=== PATIENT | male | born 1990 | race African-American/Black ===

== ENCOUNTER 2017-01-27 02:11 | Emergency (ER) | payer OTHER ==
[2017-01-27 03:04] VITALS: BP 137/79; PULSE 77; TEMP 98.4; BMI 27.8
--- NOTE | 2017-01-27 05:26 | PDOC ---
History of Present Illness - General Chief Complaint: Pain Stated Complaint: PAIN,RT SIDE Time Seen by Provider: 01/27/17 03:21 History Source: Patient Exam Limitations: No Limitations - History of Present Illness Initial Comments: 01/27/17 05:21 26yo Male patient presents to ED c/o atraumatic right rib pain onset "couple days ago." Patient reports symptoms began abruptly and had gotten worse with trouble breathing while playing basketball. Denies any other complaints at this time. Past History - Travel Traveled outside of the country in the last 30 days: No Close contact w/someone who was outside of country & ill: No - Past Medical History Allergies/Adverse Reactions: Allergies Allergy/AdvReac Type Severity Reaction Status Date / Time No Known Allergies Allergy Verified 01/27/17 02:58 Home Medications: Ambulatory Orders Ibuprofen [Motrin -] 600 mg PO Q6H PRN #30 tablet 01/27/17 Methocarbamol [Robaxin -] 500 mg PO TID PRN #21 tablet 01/27/17 NK [No Known Home Medication] 01/27/17 - Immunization History Immunization Up to Date: Yes - Psycho/Social/Smoking Cessation Hx Anxiety: No Suicidal Ideation: No Smoking Status: Yes Smoking History: Current every day smoker Years of Tobacco Use: 0 (no tobacco use, daily marijuana use .) Have you smoked in the past 12 months: Yes Number of Cigarettes Smoked Daily: 2 Information on smoking cessation initiated: No Hx Alcohol Use: No Drug/Substance Use Hx: Yes (marijuana daily) Review of Systems - Review of Systems Able to Perform ROS?: Yes Is the patient limited [place]i proficient: No Constitutional: No: Chills, Fever Respiratory: No: Cough, Shortness of Breath, Stridor, Wheezing Cardiac (ROS): No: Chest Pain, Edema, Palpitations ABD/GI: No: Diarrhea, Nausea, Vomiting : No: Symptoms Reported, Dysuria, Flank Pain, Hematuria Musculoskeletal: Yes: Other (RIGHT RIB PAIN). No: Back Pain Integumentary: No: Bruising, Dryness, Erythema Neurological: No: Headache, Seizure, Tingling, Dizziness All Other Systems: Reviewed and Negative *Physical Exam - Vital Signs Last Vital Signs Temp Pulse Resp BP Pulse Ox 98.4 F 77 18 137/79 98 01/27/17 02:53 01/27/17 02:53 01/27/17 02:53 01/27/17 02:53 01/27/17 02:53 - Physical Exam General Appearance: Yes: Nourished, Appropriately Dressed. No: Apparent Distress, Mild Distress, Moderate Distress, Severe Distress Neck: positive: Trachea midline, Supple. negative: Stridor, Lymphadenopathy (R) , Lymphadenopathy (L) Respiratory/Chest: positive: Lungs Clear, Normal Breath Sounds. negative: Respiratory Distress, Accessory Muscle Use, Labored Respiration, Rapid RR Cardiovascular: positive: Regular Rhythm, Regular Rate Gastrointestinal/Abdominal: positive: Normal Bowel Sounds, Soft. negative: Distended, Guarding, Rebound, Tenderness Musculoskeletal: positive: Normal Inspection, Other (RIGHT RIB TENDERNESS ON EXAMINATION. NO CREPITUS PALPATED). negative: CVA Tenderness Extremity: positive: Normal Capillary Refill, Normal Inspection, Normal Range of Motion Integumentary: positive: Normal Color, Dry, Warm Neurologic: positive: vp global II-XII NML intact, Fully Oriented, Alert, Normal Mood/ Affect, Normal Response, Motor Strength 02/09 ED Treatment Course - RADIOLOGY Radiology Studies Ordered: Category Date Time Status CHEST PA & LAT [RAD] Stat Radiology 01/27/17 04:31 Ordered RIBS RIGHT SIDE [RAD] Stat Radiology 01/27/17 04:31 Ordered *DC/Admit/Observation/Transfer Diagnosis at time of Disposition: Costochondritis - Discharge Dispostion Disposition: HOME Condition at time of disposition: Stable Admit: No - Prescriptions Prescriptions: Ibuprofen [Motrin -] 600 mg PO Q6H PRN #30 tablet PRN Reason: Mild Pain Methocarbamol [Robaxin -] 500 mg PO TID PRN #21 tablet PRN Reason: RIB PAIN - Referrals Referrals: Elisabeth Littlejohn [Primary Care Provider] - - Patient Instructions Printed Discharge Instructions: DI for Costochondritis Additional Instructions: FOLLOW UP WITH DR. LITTLEJOHN. CALL TO SCHEDULE APPOINTMENT. TAKE MEDICATIONS PRESCRIBED. RETURN IF SYMPTOMS WORSEN OR ANY CONCERNS FOR FURTHER EVALUATION. APPLY COLD COMPRESS EVERY 4 HOURS ON AND OFF FOR 15-20 MIN X 1 DAY, THEN WARM COMPRESS NEEDED. TRY ICY HOT PATCHES TO AFFECTED AREA. Print Language: L[place]BOURGISH - Post Discharge Activity Work/School Note: Back to Work
== END 2017-01-27 06:32 | disposition home or self-care (01) ==
LOC: JER 02:11
DX: M94.0 Chondrocostal junction syndrome [Tietze] (principal); F17.210 Nicotine dependence, cigarettes, uncomplicated
CPT/HCPCS: 71020-TC; 71101-TC-RT; 99282-25

== ENCOUNTER 2017-02-02 07:44 | Emergency (ER) | payer OTHER ==
[2017-02-02 08:00] VITALS: PULSE 82; TEMP 98.1; BMI 27.1
--- NOTE | 2017-02-02 08:15 | PDOC ---
History of Present Illness - General History Source: Patient Exam Limitations: No Limitations - History of Present Illness Initial Comments: 02/02/17 08:27 The patient is a 26 year old male with no significant past medical history who presents to the ED with complaints of right sided rib pain for a week. The patient was recently seen in the ED on 01/27/17 for a bruised rib and was discharged with Robaxin and ibuprofen. The patient reports he stopped taking Robaxin after 2-3 days secondary to nausea. He states his right sided rib pain hasnt progressively worsened but notes the pain woke him up from his sleep this morning. Patient states he woke up on his back this morning and hasnt felt pain like that since he was last seen in the ED. Patient reports coughing, sneezing, exertion and certain movements worsen his right sided rib pain. Denies fevers or chills. Denies cough, wheezing. Denies chest pain or shortness of breath. Denies focal numbness, weakness or tingling. Denies any other symptoms. <Sandra Carrera - Last Filed: 02/02/17 08:27> <Amos Simon - Last Filed: 02/02/17 09:40> - General Chief Complaint: Pain Stated Complaint: PAIN Time Seen by Provider: 02/02/17 08:14 Past History <Sandra Carrera - Last Filed: 02/02/17 08:27> - Immunization History Immunization Up to Date: Yes - Psycho/Social/Smoking Cessation Hx Anxiety: No Suicidal Ideation: No Smoking Status: Yes Smoking History: Never smoked Years of Tobacco Use: 0 (no tobacco use, daily marijuana use .) Have you smoked in the past 12 months: No Number of Cigarettes Smoked Daily: 2 Information on smoking cessation initiated: No Hx Alcohol Use: No Drug/Substance Use Hx: Yes Substance Use Type: Marijuana <Amos Simon - Last Filed: 02/02/17 09:40> - Past Medical History Allergies/Adverse Reactions: Allergies Allergy/AdvReac Type Severity Reaction Status Date / Time No Known Allergies Allergy Verified 02/02/17 07:50 Home Medications: Ambulatory Orders Ibuprofen [Motrin -] 600 mg PO Q6H PRN #30 tablet 01/27/17 Methocarbamol [Robaxin -] 500 mg PO TID PRN #21 tablet 04/22/17 Ondansetron [Zofran Odt -] 4 mg SL TID #21 od.tablet 02/02/17 Oxycodone HCl/Acetaminophen [Percocet 5-325 mg Tablet] 1 - 2 tab PO Q6H #20 tab MDD 6 02/02/17 Review of Systems - Review of Systems Able to Perform ROS?: Yes Comments:: 02/02/17 08:27 GENERAL/CONSTITUTIONAL: No fever or chills. No weakness. HEAD, EYES, EARS, NOSE AND THROAT: No change in vision. No ear pain or discharge. No sore throat. CARDIOVASCULAR: No chest pain or shortness of breath. RESPIRATORY: No cough, wheezing, or hemoptysis. GASTROINTESTINAL: No nausea, vomiting, diarrhea or constipation. GENITOURINARY: No dysuria, frequency, or change in urination. MUSCULOSKELETAL: + right rib pain. No joint or muscle swelling. No neck or back pain. SKIN: No rash NEUROLOGIC: No headache, vertigo, loss of consciousness, or change in strength/ sensation. ENDOCRINE: No increased thirst. No abnormal weight change. HEMATOLOGIC/LYMPHATIC: No anemia, easy bleeding, or history of blood clots. ALLERGIC/IMMUNOLOGIC: No hives or skin allergy. All Other Systems: Reviewed and Negative <Sandra Carrera - Last Filed: 02/02/17 08:27> *Physical Exam - Vital Signs Last Vital Signs Temp Pulse Resp BP Pulse Ox 98.1 F 82 18 151/91 98 02/02/17 07:50 02/02/17 07:50 02/02/17 07:50 02/02/17 07:50 02/02/17 07:50 - Physical Exam Comments: 02/02/17 08:28 GENERAL: Awake, alert, and fully oriented, in no acute distress HEAD: No signs of trauma EYES: PERRLA, EOMI, sclera anicteric, conjunctiva clear ENT: Auricles normal inspection, hearing grossly normal, nares patent, oropharynx clear without exudates. Moist mucosa NECK: Normal ROM, supple, no lymphadenopathy, JVD, or masses LUNGS: Breath sounds equal, clear to auscultation bilaterally. No wheezes, and no crackles HEART: Regular rate and rhythm, normal S1 and S2, no murmurs, rubs or gallops ABDOMEN: Soft, nontender, normoactive bowel sounds. No guarding, no rebound. No masses MUSCULOSKELETAL: + Right Rib tenderness EXTREMITIES: Normal range of motion, no edema. No clubbing or cyanosis. No cords, erythema, or tenderness NEUROLOGICAL: Cranial nerves II through XII grossly intact. Normal speech, normal gait SKIN: Warm, Dry, normal turgor, no rashes or lesions noted. <Sandra Carrera - Last Filed: 02/02/17 08:27> - Vital Signs Last Vital Signs Temp Pulse Resp BP Pulse Ox 98.1 F 82 18 151/91 98 02/02/17 07:50 02/02/17 07:50 02/02/17 07:50 02/02/17 07:50 02/02/17 07:50 <Amos Simon - Last Filed: 02/02/17 09:40> *DC/Admit/Observation/Transfer - Attestations Scribe Attestion: 02/02/17 08:28 Documentation prepared by Sandra Carrera, acting as medical delivery driver for Amos Simon MD <Sandra Carrera - Last Filed: 02/02/17 08:27> - Discharge Dispostion Admit: No - Attestations Physician Attestion: 02/02/17 08:15 I, Dr. Amos Simon, attest that this document has been prepared under my direction and personally reviewed by me in its entirety. I further attest, that it accurately reflects all work, treatment, procedures and medical decision -making performed by me. <Amos Simon - Last Filed: 02/02/17 09:40> Diagnosis at time of Disposition: Rib fracture Qualifiers: Encounter type: subsequent encounter Rib fracture type: single rib Fracture type: closed Laterality: right Fracture healing: with routine healing Qualified Code(s): S22.31XD - Fracture of one rib, right side, subsequent encounter for fracture with routine healing - Discharge Dispostion Disposition: HOME Condition at time of disposition: Good - Prescriptions Prescriptions: Oxycodone HCl/Acetaminophen [Percocet 5-325 mg Tablet] 1 - 2 tab PO Q6H #20 tab MDD 6 Ondansetron [Zofran Odt -] 4 mg SL TID #21 od.tablet - Referrals Referrals: Aung Dejesus MD [Primary Care Provider] - - Patient Instructions Printed Discharge Instructions: DI for Rib Fracture Additional Instructions: Jose - Sorry this happened to you. See your doctor early next week. Meanwhile use an ice pack and those lidocaine patches. Percocet is for really bad pain. Zofran will help with the upset stomach (from the percocet). Off work until you can see your doctor. Best- DR. Amos Simon - Post Discharge Activity Work/School Note: Back to Work
[2017-02-02] MEDS ORDERED: ONDANSETRON *ODT* 4 MG TABLET SL ONE (08:30)
[2017-02-02] MEDS ORDERED: IBUPROFEN 400 MG TABLET (FP) PO ONE ×2 (08:30→08:35)
[2017-02-02] MEDS ORDERED: ONDANSETRON *ODT* 4 MG TABLET ONE (08:35)
[2017-02-02 09:36] VITALS: BP 141/93
== END 2017-02-02 09:44 | disposition home or self-care (01) ==
LOC: JER 07:44
DX: S22.31XD Fracture of one rib, right side, subsequent encounter for fracture with routine healing (principal); X50.0XXD Overexertion from strenuous movement or load, subsequent encounter; Y93.67 Activity, basketball; Y92.310 Basketball court as the place of occurrence of the external cause; Y99.8 Other external cause status
CPT/HCPCS: 71101-TC-RT; 99282-25

== ENCOUNTER 2018-06-07 16:08 | Emergency (ER) | payer OTHER ==
--- NOTE | 2018-06-07 16:16 | PDOC ---
Rapid Medical Evaluation Time Seen by Provider: 06/07/18 16:11 Medical Evaluation: Allergies Allergy/AdvReac Type Severity Reaction Status Date / Time No Known Allergies Allergy Verified 02/02/17 07:50 06/07/18 16:14 28y/o M smoker with vomiting blood with intermittent abd discomfort a few weeks , last episode was a week ago vss labs ordered, CXR Discharge Disposition - Diagnosis Hematemesis Qualifiers: Nausea presence: with nausea Qualified Code(s): K92.0 - Hematemesis - Referrals - Patient Instructions - Post Discharge Activity
[2018-06-07 16:17] VITALS: BP 136/94; PULSE 90; TEMP 98; BMI 27.8
[2018-06-07 16:42] LABS: HEMATOCRIT 51.5 % (35.4-49); HEMOGLOBIN 17.3 GM/dL (11.7-16.9); MCH 29.1 pg (25.7-33.7); MCHC 33.5 g/dl (32.0-35.9); MEAN CELL VOLUME 86.8 fl (80-96); PLATELET COUNT 280 K/MM3 (134-434); RBC 5.93 M/mm3 (4.00-5.60); RDW 13.4 % (11.9-15.9); WHITE BLOOD COUNT 8.8 K/mm3 (4.0-10.0)
[2018-06-07 16:56] LABS: INR 1.16 (0.83-1.09); PROTHROMBIN TIME (PATIENT) 13.1 SEC (9.7-13.0)
[2018-06-07] MEDS ORDERED: PANTOPRAZOLE SODIUM 40 MG VIAL IVPUSH ONE (17:01)
[2018-06-07] MEDS ORDERED: FAMOTIDINE 20 MG/50 ML IVPB 20 MG/50 ML MG IVPB ONE ×2 (17:02→17:16)
[2018-06-07 17:03] LABS: ALBUMIN 4.6 g/dl (3.4-5.0); ANION GAP 11 MMOL/L (8-16); BILIRUBIN,TOTAL 0.7 mg/dL (0.2-1.0); BLOOD UREA NITROGEN 12 mg/dL (7-18); CALCIUM 9.4 mg/dL (8.5-10.1); CHLORIDE 109 mmol/L (98-107); CO2 24 mmol/L (21-32); GLUCOSE,RANDOM 98 mg/dL (74-106); SGOT/AST 34 U/L (15-37); SGPT/ALT 86 U/L (12-78); SODIUM 144 mmol/L (136-145); TOT PROT 8.2 g/dl (6.4-8.2)
[2018-06-07] MEDS ORDERED: SODIUM CHLORIDE 1,000 ML IV STA (17:03)
[2018-06-07 17:04] LABS: ALK PHOS 103 U/L (45-117)
[2018-06-07] MEDS ORDERED: PANTOPRAZOLE SODIUM 40 MG/100 ML BAG IVPB ONE (17:15)
[2018-06-07 17:30] LABS: LIPASE 99 U/L (73-393)
[2018-06-07] MEDS ORDERED: ACETAMINOPHEN 1000 MG/100 ML VIAL (NON FORMULARY) IVPB ONE (17:39)
--- NOTE | 2018-06-07 17:43 | PDOC ---
Attending Attestation - Resident Resident Name: Abdirashid Dejesus - ED Attending Attestation I have performed the following: I have examined & evaluated the patient, The case was reviewed & discussed with the resident, I agree w/resident's findings & plan, Exceptions are as noted - Medical Decision Making 06/07/18 17:42 A portion of this note was written by my scribe, under my supervision. Vital Signs Temp Pulse Resp BP Pulse Ox 98 F 90 19 136/94 98 06/07/18 16:11 06/07/18 16:11 06/07/18 16:11 06/07/18 16:11 06/07/18 16:11 28-year-old male patient with no past medical history presents with vomiting. The patient reports a chronic history of intermittent vomiting. Reports that he drinks approximately small bottle of [place] each week. Also endorses that he smokes marijuana on a near daily basis. One week ago, patient had approximately 1 cup of hematemesis resolved on it's own. Patient reports chronic left upper quadrant pain and intermittent nausea and nonbloody vomiting since then. Denies blood per rectum. Denies melanotic stools. Stated that he initially did not come to the hospital because he wanted to stay home. Stated that the symptoms were persistent came to the ER. Never had an endoscopy. I suspect the patient likely has gastritis or peptic ulcer disease. Given that the patient is no longer vomiting blood, we'll initiate current medications and obtain blood work including LFTs, lipase. Attempt guiac. 06/07/18 17:53 Given that the patient has not vomited blood for over a week. I advised patient to stop drinking alcohol and to stop marijuana use as this may be provoking his nausea and vomiting. The patient would benefit from a GI outpatient follow-up for endoscopy. If the workup is unremarkable the patient feels better medications, will discharge patient on Protonix and Pepcid or Zantac. Patient verbalizes understanding agrees with the plan. 06/07/18 18:04 CBC, BMP 06/07/18 16:20 06/07/18 16:20 CMP Sodium 144 mmol/L (136-145) 06/07/18 16:20 Potassium 4.0 mmol/L (3.5-5.1) 06/07/18 16:20 Chloride 109 mmol/L (98-107) H 06/07/18 16:20 Carbon Dioxide 24 mmol/L (21-32) 06/07/18 16:20 Anion Gap 11 MMOL/L (8-16) 06/07/18 16:20 BUN 12 mg/dL (7-18) 06/07/18 16:20 Creatinine 1.0 mg/dL (0.7-1.3) 06/07/18 16:20 Creat Clearance w eGFR > 60 (>60) 06/07/18 16:20 Random Glucose 98 mg/dL (74-106) 06/07/18 16:20 Calcium 9.4 mg/dL (8.5-10.1) 06/07/18 16:20 Total Bilirubin 0.7 mg/dL (0.2-1.0) 06/07/18 16:20 AST 34 U/L (15-37) D 06/07/18 16:20 ALT 86 U/L (12-78) H 06/07/18 16:20 Alkaline Phosphatase 103 U/L (45-117) 06/07/18 16:20 Creatine Kinase 279 IU/L (39-308) 06/07/18 17:10 Troponin I < 0.02 ng/ml (0.00-0.05) 06/07/18 17:10 Total Protein 8.2 g/dl (6.4-8.2) 06/07/18 16:20 Albumin 4.6 g/dl (3.4-5.0) 06/07/18 16:20 Lipase 99 U/L (73-393) 06/07/18 17:10 Chest xray reviewed. No acute findings. <Fahad Austin - Last Filed: 06/07/18 18:04> - HPI HPI: 06/07/18 18:50 The patient is a 28-year-old male presents to the emergency department complaining of bloody emesis. The patient presents with nausea and vomiting, which initially presented 7 days ago. The patient reports on Sunday he had a single episode of bloody emesis, states about half a bottle vomited. The patient reports following he had multiple episodes of blood tinged emesis. The patient reports taking Zofran, with noted relief. The patient states over the week he was fine. The patient states on Sunday had [place] food, following Nathalie morning he woke up with nausea and had several episodes of nonbilious- bloody vomiting. The patient reports having episodes of nonbilious, blood tinged emesis today, accompanied with epigastric pain. The patient reports the social use of Marijuana, reports relief to nausea, denies aggravation with the use. Denies melena or hematochezia. Denies diarrhea or constipation. Denies fever, chills, PMHx: No significant past medical history SHx: Alcohol use. Marijuana use. No smoking or other drug use reported. PCP: Anjelica Hernandez. Last visit was in December. - Physicial Exam PE: 06/07/18 18:16 GENERAL: Awake, alert, and fully oriented, in no acute distress HEAD: No signs of trauma EYES: PERRLA, EOMI, sclera anicteric, conjunctiva clear ENT: Auricles normal inspection, hearing grossly normal, nares patent, Moist mucosa NECK: Normal ROM, supple, JVD, or masses ABDOMEN: (+) Tenderness to LUQ to palpation. Soft, normoactive bowel sounds. No guarding, no rebound. No masses EXTREMITIES: Normal range of motion, no edema. No clubbing or cyanosis. No cords, erythema, or tenderness NEUROLOGICAL: Cranial nerves II through XII grossly intact. Normal speech, normal gait SKIN: Warm, Dry, normal turgor, no rashes or lesions noted. <Nanette Fabian - Last Filed: 06/07/18 18:50> Heart Score/ECG Review #1 ECG reviewed & interpreted by me at: 17:50 06/07/18 17:52 NSR 82, no std/manjeet, TWI III, avF, normal axis, normal intervals, QTC 401 msec <Fahad Austin - Last Filed: 06/07/18 18:04>
--- NOTE | 2018-06-07 17:50 | PDOC ---
History of Present Illness - General Chief Complaint: Vomiting Blood Stated Complaint: VOMITING BLOOD Time Seen by Provider: 06/07/18 16:11 - History of Present Illness Initial Comments: 06/07/18 17:40 Pt is a 28 y/o gentleman w/ no significant pmh that presents to [facility] this afternoon c/o vomiting and decreased energy. Pt endorses that he first vomited bright red blood last Sunday while at work, roughly 1 cup. Pt states since that incident, he has vomited once everyday. Pt has been nauseous and is also c/o LUQ abdominal pain during this time period. Pt endorses consuming roughly 1 bottle of Judith [place]ogn[place] once per week. Pt's last alcoholic drink was the Sunday before his initial vomiting episode. Also endorses night sweats and non- bloody diarrhea. Denies weight loss, sob, cp, garcia, loc, or dizziness. 06/07/18 18:22 Past History - Travel Traveled outside of the country in the last 30 days: No Close contact w/someone who was outside of country & ill: No - Past Medical History Allergies/Adverse Reactions: Allergies Allergy/AdvReac Type Severity Reaction Status Date / Time No Known Allergies Allergy Verified 06/07/18 16:11 Home Medications: Ambulatory Orders Ibuprofen [Motrin -] 600 mg PO Q6H PRN #30 tablet 01/27/17 Methocarbamol [Robaxin -] 500 mg PO TID PRN #21 tablet 01/27/17 Ondansetron [Zofran Odt -] 4 mg SL TID #21 od.tablet 02/02/17 Oxycodone HCl/Acetaminophen [Percocet 5-325 mg Tablet] 1 - 2 tab PO Q6H #20 tab MDD 6 02/02/17 Famotidine [Pepcid] 20 mg PO BID #28 tablet 06/07/18 Pantoprazole Sodium [Protonix] 40 mg PO DAILY #14 tablet. 06/07/18 COPD: No Other medical history: DENIES. - Surgical History Abdominal Surgery: No Appendectomy: No Cardiac Surgery: No Cholecystectomy: No Gastric Stapling: No GI Surgery: No Lung Surgery: No Neurologic Surgery: No Orthopedic Surgery: No - Family Disease History Family Disease History: Other: Mother (Trigeminal Neuralgia ) - Immunization History Immunization Up to Date: Yes - Suicide/Smoking/Psychosocial Hx Smoking Status: Yes Smoking History: Never smoked Years of Tobacco Use: 0 (no tobacco use, daily marijuana use .) Have you smoked in the past 12 months: No Number of Cigarettes Smoked Daily: 2 Hx Alcohol Use: No Drug/Substance Use Hx: Yes Substance Use Type: Marijuana *Physical Exam - Vital Signs Last Vital Signs Temp Pulse Resp BP Pulse Ox 98 F 90 19 136/94 98 06/07/18 16:11 06/07/18 16:11 06/07/18 16:11 06/07/18 16:11 06/07/18 16:11 - Physical Exam Comments: 06/07/18 17:51 GEN- AAOx3, NAD HEENT--MMM, No Palor NEURO- No Neuro Deficits appreciated. Power 5/5 throughout. Sensation intact. RS- CTA B/L CV- Tachycardia ABD- LUQ Tenderness EXT- No CCE ED Treatment Course - LABORATORY CBC & Chemistry Diagram: 06/07/18 16:20 06/07/18 16:20 Comment: Pt started on Protonix 40 mg Daily, Pepcid 20 mg BID, G.I Referrel, F/ U PCP - ADDITIONAL ORDERS Additional order review: Laboratory Results 06/07/18 06/07/18 16:20 16:20 PT with INR 13.10 H INR 1.16 H Sodium 144 Potassium 4.0 Chloride 109 H Carbon Dioxide 24 Anion Gap 11 BUN 12 Creatinine 1.0 Creat Clearance w eGFR > 60 Random Glucose 98 Calcium 9.4 Total Bilirubin 0.7 AST 34 D ALT 86 H Alkaline Phosphatase 103 Total Protein 8.2 Albumin 4.6 06/07/18 16:20 RBC 5.93 H MCV 86.8 MCHC 33.5 RDW 13.4 MPV 8.0 - Medications Given in the ED: ED Medications Discontinued Medications Generic Name Dose Route Start Last Admin Trade Name Freq PRN Reason Stop Dose Admin Famotidine/Sodium Chloride 20 mg in 50 mls @ 100 mls/hr 06/07/18 17:02 17:12 Pepcid 20 Mg Premixed Ivpb - IVPB 06/07/18 17:31 100 mls/hr ONCE ONE Administration Pantoprazole Sodium 40 mg 06/07/18 17:01 06/07/18 17:12 Protonix Iv IVPUSH 06/07/18 17:02 40 mg ONCE ONE Administration 06/07/18 17:58 - Protonix 40 mg IVPUSH - Pepcid 20 mg IVPB 06/07/18 18:13 Guiac test couldn't be performed as rectal vault void of stool, pt uncomfortable with collection as well. Pt informed to f/u w/ PCP and G.I physician. *DC/Admit/Observation/Transfer Diagnosis at time of Disposition: Gastrointestinal bleed Hematemesis Qualifiers: Nausea presence: with nausea Qualified Code(s): K92.0 - Hematemesis - Discharge Dispostion Disposition: HOME Condition at time of disposition: Good Decision to Admit order: No - Prescriptions Prescriptions: Famotidine [Pepcid] 20 mg PO BID #28 tablet Pantoprazole Sodium [Protonix] 40 mg PO DAILY #14 tablet.dr - Referrals Referrals: Cornelius Michel MD [Staff Physician] - Call tomorrow (Please f/u with Reliability Manager for bloody vomitus. ) Aung Dejesus MD [Primary Care Provider] - Call tomorrow (Please follow up w / current Primary Care physician. ) - Patient Instructions Printed Discharge Instructions: Gastrointestinal Bleeding - Post Discharge Activity
[2018-06-07] MEDS ORDERED: ACETAMINOPHEN INJECTION 100 ML IVPB ONE (17:53)
--- NOTE | 2018-06-10 14:08 | EKG ---
Test Reason : Blood Pressure : / mmHG Vent. Rate : 082 BPM Atrial Rate : 082 BPM P-R Int : 138 ms QRS Dur : 090 ms QT Int : 344 ms P-R-T Axes : 046 058 -01 degrees QTc Int : 401 ms NORMAL SINUS RHYTHM NORMAL ECG NO PREVIOUS ECGS AVAILABLE Confirmed by KELSEY OLIVARES MD ([id number]) on 06/10/2018 2:08:48 PM Referred By: Confirmed By:KELSEY OLIVARES MD
== END 2018-06-07 18:46 | disposition home or self-care (01) ==
LOC: JER 16:08
PROC: 3E033NZ Introduction of Analgesics, Hypnotics, Sedatives into Peripheral Vein, Percutaneous Approach (ICD-10-PCS; principal; 2018-06-07)
PROC: 3E033GC Introduction of Other Therapeutic Substance into Peripheral Vein, Percutaneous Approach (ICD-10-PCS; 2018-06-07)
PROC: 3E0337Z Introduction of Electrolytic and Water Balance Substance into Peripheral Vein, Percutaneous Approach (ICD-10-PCS; 2018-06-07)
DX: K92.2 Gastrointestinal hemorrhage, unspecified (principal); K92.0 Hematemesis
CPT/HCPCS: 36415; 71046-TC-FY; 80053; 82550; 82553; 83690; 84484; 85027; 85610; 93005; 93010; 96361; 96365; 96375; 99283-25; J0131; J7030

== ENCOUNTER 2018-07-08 12:07 | Emergency (ER) | payer OTHER ==
[2018-07-08 12:23] VITALS: BP 147/97; PULSE 100; TEMP 98; BMI 27.1
[2018-07-08] MEDS ORDERED: IBUPROFEN 400 MG TABLET (FP) PO ONE ×2 (12:52→13:01)
--- NOTE | 2018-07-08 12:57 | PDOC ---
History of Present Illness - General Chief Complaint: Sore Throat Stated Complaint: BODYACHES, RASH Time Seen by Provider: 07/08/18 12:38 History Source: Patient Exam Limitations: No Limitations - History of Present Illness Initial Comments: 07/08/18 13:18 Patient is a 28-year-old male with no past medical history, who presents emergency department today for a rash to his hands feet and mouth. Patient states he believes he has coxsackie. States he had a fever 2 days ago which since broke. He noticed blisters forming after the fever broke. Denies chills, sore throat, congestion, chest pain, difficulty breathing, nausea, vomiting and diarrhea. 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 Past History - Travel Traveled outside of the country in the last 30 days: No Close contact w/someone who was outside of country & ill: No - Past Medical History Allergies/Adverse Reactions: Allergies Allergy/AdvReac Type Severity Reaction Status Date / Time No Known Allergies Allergy Verified 07/08/18 12:19 Home Medications: Ambulatory Orders Ibuprofen 800 mg PO TID #30 tablet 07/08/18 Mag Hydrox/Alh/Smc/Dpha/Lido [Magic Mouthwash *Sjr Formula* -] 5 ml MM Q6HPO #1 bottle 07/08/18 COPD: No - Surgical History Abdominal Surgery: No Appendectomy: No Cardiac Surgery: No Cholecystectomy: No Gastric Stapling: No GI Surgery: No Lung Surgery: No Neurologic Surgery: No Orthopedic Surgery: No - Family Disease History Family Disease History: Other: Mother (Trigeminal Neuralgia ) - Immunization History Immunization Up to Date: Yes - Suicide/Smoking/Psychosocial Hx Smoking Status: Yes Smoking History: Never smoked Years of Tobacco Use: 0 (no tobacco use, daily marijuana use .) Have you smoked in the past 12 months: No Number of Cigarettes Smoked Daily: 2 Hx Alcohol Use: No Drug/Substance Use Hx: Yes Substance Use Type: Marijuana Review of Systems - Review of Systems Able to Perform ROS?: Yes Comments:: 07/08/18 12:55 CONSTITUTIONAL: Present: fever Absent: chills, diaphoresis, generalized weakness, malaise, loss of appetite HEENT: Absent: rhinorrhea, nasal congestion, throat pain, throat swelling, difficulty swallowing, mouth swelling, ear pain, eye pain, visual Changes CARDIOVASCULAR: Absent: chest pain, loss of consciousness, palpitations, irregular heart rate, peripheral edema RESPIRATORY: Absent: cough, shortness of breath, dyspnea with exertion, orthopnea, wheezing, stridor, hemoptysis GASTROINTESTINAL: Absent: abdominal pain, abdominal distension, nausea, vomiting, diarrhea, constipation, melena, hematochezia GENITOURINARY: Absent: dysuria, frequency, urgency, hesitancy, hematuria, flank pain, genital pain MUSCULOSKELETAL: Absent: myalgia, arthralgia, joint swelling SKIN: Present: rash to hands, feet and mouth Absent: rash, itching, pallor HEMATOLOGIC/IMMUNOLOGIC: Absent: easy bleeding, easy bruising, lymphadenopathy, frequent infections ENDOCRINE: Absent: unexplained weight gain, unexplained weight loss, heat intolerance, cold intolerance NEUROLOGIC: Absent: headache, focal weakness or paresthesias, dizziness, unsteady gait, seizure, mental status changes, bladder or bowel incontinence PSYCHIATRIC: Absent: anxiety, depression, suicidal or homicidal ideation, hallucinations. Is the patient limited Tajik proficient: No *Physical Exam - Vital Signs Last Vital Signs Temp Pulse Resp BP Pulse Ox 98.0 F 100 H 18 147/97 98 07/08/18 12:20 07/08/18 12:20 07/08/18 12:20 07/08/18 12:20 07/08/18 12:20 - Physical Exam Comments: 07/08/18 12:56 GENERAL: Well developed, well nourished. Awake and alert. No acute distress. HEENT: Normocephalic, atraumatic. PERRLA, EOMI. No conjunctival pallor. Sclera are non- icteric. Moist mucous membranes. Oropharynx is with ulcerations to the buccal mucosa. NECK: Supple. Full ROM. No JVD. Carotid pulses 2+ and symmetric, without bruits. No thyromegaly. No lymphadenopathy. CARDIOVASCULAR: Regular rate and rhythm. No murmurs, rubs, or gallops. Distal pulses are 2+ and symmetric. PULMONARY: No evidence of respiratory distress. Lungs clear to auscultation bilaterally. No wheezing, rales or rhonchi. ABDOMINAL: Soft. Non-tender. Non-distended. No rebound or guarding. No organomegaly. Normoactive bowel sounds. MUSCULOSKELETAL Normal range of motion at all joints. No bony deformities or tenderness. No CVA tenderness. EXTREMITIES: No cyanosis. No clubbing. No edema. No calf tenderness. SKIN: Erythematous vesicles to the hands and feet. Warm and dry. Normal capillary refill. No jaundice. NEUROLOGICAL: Alert, awake, appropriate. Cranial nerves 2-12 intact. No deficits to light touch and temperature in face, upper extremities and lower extremities. No motor deficits in the in face, upper extremities and lower extremities. Normoreflexic in the upper and lower extremities. Normal speech. Toes are down- going bilaterally. Gait is normal without ataxia. PSYCHIATRIC: Cooperative. Good eye contact. Appropriate mood and affect. Medical Decision Making - Medical Decision Making 07/08/18 13:22 Patient is a 28-year-old male past medical history who presents department today with coxsackie virus Informed patient is a virus and will get better on its own. There is no definitive treatment for it. Magic mouthwash and Motrin prescribed. Informed patient he should return to work when he no longer has active blisters. Patient follow up with his primary care doctor. I discussed the physical exam findings, ancillary test results and final diagnoses with the patient. I answered all of the patient's questions. The patient was satisfied with the care received and felt comfortable with the discharge plan and treatment plan. The Patient agrees to follow up with the primary care physician/specialist within 24-72 hours. Return precautions were given. *DC/Admit/Observation/Transfer Diagnosis at time of Disposition: Hand, foot, and mouth disease - Discharge Dispostion Disposition: HOME Condition at time of disposition: Stable Decision to Admit order: No - Prescriptions Prescriptions: Ibuprofen 800 mg PO TID #30 tablet Mag Hydrox/Alh/Smc/Dpha/Lido [Magic Mouthwash *Sjr Formula* -] 5 ml MM Q6HPO #1 bottle - Referrals Referrals: Aung Dejesus MD [Primary Care Provider] - - Patient Instructions Printed Discharge Instructions: Hand, Foot, and Mouth Disease Additional Instructions: You have shpo-ymfv-fiv-mouth disease otherwise known as coxsackie virus This is a virus that will get better on its own. You may take Motrin 800 mg every 8 hours as needed for pain. You may use popsicles or ice cubes to help with your pain. Avoid sharing towels to help prevent spread of virus. You may use the Magic mouthwash as directed. Follow-up with her primary care doctor to clear for work. Return to emergency department he'll high fevers, worsening pain, numbness or tingling to the extremities, or if you have any changes in her symptoms. - Post Discharge Activity Forms/Work/School Notes: Back to Work
== END 2018-07-08 13:04 | disposition home or self-care (01) ==
LOC: JERFT 12:07
DX: B08.4 Enteroviral vesicular stomatitis with exanthem (principal); B97.11 Coxsackievirus as the cause of diseases classified elsewhere
CPT/HCPCS: 99281-25

== ENCOUNTER 2018-12-04 19:19 | Emergency (ER) | payer OTHER ==
[2018-12-04 19:52] VITALS: BP 140/92; PULSE 95; TEMP 97.9; BMI 25.0
--- NOTE | 2018-12-04 19:55 | PDOC ---
Rapid Medical Evaluation Chief Complaint: Chest Pain Time Seen by Provider: 12/04/18 19:53 Medical Evaluation: Allergies Allergy/AdvReac Type Severity Reaction Status Date / Time No Known Allergies Allergy Verified 07/08/18 12:19 Vital Signs Temp Pulse Resp BP Pulse Ox 97.9 F 95 H 20 140/92 99 12/04/18 19:44 12/04/18 19:44 12/04/18 19:44 12/04/18 19:44 12/04/18 19:44 12/04/18 19:54 I have performed a brief in-person evaluation of this patient. The patient presents with a chief complaint of: Here w/ possible panic attack. States while on phone arguing with his son's mother bernardo, he developed sudden onset chest pain w/ sob "and I couldn't stop crying" per pt. Feels better now. No h/o similar sxs. No psych hx. Smokes marijuana almost daily. Denies any other illicit drug use Pertinent physical exam findings:Stable I have ordered the following:ekg The patient will proceed to the ED for further evaluation. Discharge Disposition - Diagnosis Chest pain Qualifiers: Chest pain type: unspecified Qualified Code(s): R07.9 - Chest pain, unspecified - Referrals - Patient Instructions - Post Discharge Activity
--- NOTE | 2018-12-04 20:47 | PDOC ---
*Physical Exam - Vital Signs Last Vital Signs Temp Pulse Resp BP Pulse Ox 97.9 F 95 H 20 140/92 99 12/04/18 19:44 12/04/18 19:44 12/04/18 19:44 12/04/18 19:44 12/04/18 19:44 ED Treatment Course - LABORATORY CBC & Chemistry Diagram: 12/04/18 20:53 12/04/18 20:53 Medical Decision Making - Medical Decision Making 12/04/18 20:47 Patient seen by the advanced practice provider under my direct supervision. Ancillary testing reviewed as necessary. I agree with plan as outlined by the advanced practice provider. *DC/Admit/Observation/Transfer Diagnosis at time of Disposition: Anxiety Chest pain Qualifiers: Chest pain type: unspecified Qualified Code(s): R07.9 - Chest pain, unspecified - Discharge Dispostion Disposition: HOME Condition at time of disposition: Stable - Prescriptions Prescriptions: hydrOXYzine HCL [Atarax -] 25 mg PO TID #21 tablet - Referrals Referrals: Aung Dejesus MD [Primary Care Provider] - - Patient Instructions Printed Discharge Instructions: DI for Atypical Chest Pain Additional Instructions: Take hydroxyzine 25 mg 3 times a day as needed for anxiety. Make an appointment with her primary doctor for reevaluation of her pain. Initial blood testing and cardiac profile were negative here. Return to emergency department for any new or worsening symptoms. - Post Discharge Activity
--- NOTE | 2018-12-04 20:56 | PDOC ---
History of Present Illness - General Chief Complaint: Chest Pain Stated Complaint: ANXIETY ATTACK Time Seen by Provider: 12/04/18 19:53 History Source: Patient Exam Limitations: No Limitations - History of Present Illness Initial Comments: 12/04/18 20:56 HISTORY OF PRESENT ILLNESS: 28-year-old male denies medical history presents emergency department for evaluation of sudden onset sharp 7/10 midsternal chest pain while having an argument with his child's mother. Patient states was on the phone and was heated argument when he began to experience the symptoms. Reported feeling nauseous at the time. All symptoms have now resolved. Patient denies any headaches, blurry vision, dizziness, nausea, vomiting, chest pain, shortness of breath, abdominal pain. No recent travel or sick contacts. PAST MEDICAL HISTORY: Denies past medical history SURGICAL HISTORY: Denies ALLERGIES: No known drug allergies REVIEW OF SYSTEMS General/Constitutional: Denies fever or chills. Denies weakness, weight change. HEENT: Denies change in vision. Denies ear pain or discharge. Denies sore throat. Cardiovascular: see HPI Respiratory: Denies cough, wheezing, or hemoptysis. Gastrointestinal: Denies nausea, vomiting, diarrhea or constipation. Denies rectal bleeding. Genitourinary: Denies dysuria, frequency, or change in urination. Musculoskeletal: Denies joint or muscle swelling or pain. Denies neck or back pain. Skin and breasts: Denies rash or easy bruising. Neurologic: Denies headache, vertigo, loss of consciousness, or loss of sensation. Psychiatric: Denies depression or anxiety. Endocrine: Denies increased thirst. Denies abnormal weight change. Hematologic/Lymphatic: Denies anemia, easy bleeding, or history of blood clots. Allergic/Immunologic: Denies hives or skin allergy. Denies latex allergy. PHYSICAL EXAM General Appearance: Well-appearing, appropriately dressed. No apparent distress , no intoxication. HEENT: EOMI, PERRLA, normal ENT inspection, normal voice, TMs normal, pharynx normal. No conjunctival pallor. No photophobia, scleral icterus. Neck: Supple. Trachea midline. No tenderness, rigidity, carotid bruit, stridor , lymphadenopathy, or thyromegaly. Respiratory/Chest: Lungs CTAB. No shortness of breath, chest tenderness, respiratory distress, accessory muscle use. No crackles, rales, rhonchi, stridor , wheezing, dullness Cardiovascular: RRR. S1, S2. No JVD, murmur, bradycardia, tachycardia. Vascular Pulses: Dorsalis-Pedis (R): 2+, Dorsalis-Pedis (L): 2+ Gastrointestinal/Abdominal: Normal bowel sounds. Abdomen soft, non-distended. No tenderness or rebound tenderness. No organomegaly, pulsatile mass, guarding, hernia, hepatomegaly, splenomegaly. Lymphatic: No adenopathy, tenderness. Musculoskeletal/Extremities: Normal inspection. FROM of all extremities, normal capillary refill. Pelvis Stable. No CVA tenderness. No tenderness to extremities, pedal edema, swelling, erythema or deformity. Integumentary: Appropriate color, dry, warm. No cyanosis, erythema, jaundice or rash Neurologic: digital strategy manager II-XII intact. Fully oriented, alert. Appropriate mood/affect. Motor strength 5/5. No appreciable EOM palsy, facial droop or sensory deficit. Past History - Past Medical History Allergies/Adverse Reactions: Allergies Allergy/AdvReac Type Severity Reaction Status Date / Time No Known Allergies Allergy Verified 07/08/18 12:19 Home Medications: Ambulatory Orders Ibuprofen 800 mg PO TID #30 tablet 07/08/18 Mag Hydrox/Alh/Smc/Dpha/Lido [Magic Mouthwash *Sjr Formula* -] 5 ml MM Q6HPO #1 bottle 07/08/18 hydrOXYzine HCL [Atarax -] 25 mg PO TID #21 tablet 12/04/18 COPD: No - Surgical History Abdominal Surgery: No Appendectomy: No Cardiac Surgery: No Cholecystectomy: No Gastric Stapling: No GI Surgery: No Lung Surgery: No Neurologic Surgery: No Orthopedic Surgery: No - Family Disease History Family Disease History: Other: Mother (Trigeminal Neuralgia ) - Immunization History Immunization Up to Date: Yes - Suicide/Smoking/Psychosocial Hx Smoking Status: Yes Smoking History: Never smoked Years of Tobacco Use: 0 (no tobacco use, daily marijuana use .) Have you smoked in the past 12 months: No Number of Cigarettes Smoked Daily: 2 Information on smoking cessation initiated: No Hx Alcohol Use: No Drug/Substance Use Hx: Yes (Marijuanna) Substance Use Type: Marijuana *Physical Exam - Vital Signs Last Vital Signs Temp Pulse Resp BP Pulse Ox 97.9 F 95 H 20 140/92 99 12/04/18 19:44 12/04/18 19:44 12/04/18 19:44 12/04/18 19:44 12/04/18 19:44 Moderate Sedation - Procedure Monitoring Vital Signs: Procedure Monitoring Vital Signs Temperature 97.9 F 12/04/18 19:44 Pulse Rate 95 H 12/04/18 19:44 Respiratory Rate 20 12/04/18 19:44 Blood Pressure 140/92 12/04/18 19:44 O2 Sat by Pulse Oximetry (%) 99 12/04/18 19:44 Heart Score/ECG Review - History History: Slightly suspicious - Electrocardiogram EKG: Normal - Age Age: </= 45 - Risk Factors Based on the list above the patient has:: No risk factors known - Troponin Troponin: </= normal limit - Score Heart Score - Total: 0 - ECG Intrepretation Rhythm: Regular Rhythm - Robinson Robinson: Normal - ST and T Early Repolarization: No Non Specific ST-T Wave changes: No - ECG Impressions Normal ECG: Yes ED Treatment Course - LABORATORY CBC & Chemistry Diagram: 12/04/18 20:53 12/04/18 20:53 Medical Decision Making - Medical Decision Making 12/04/18 21:00 A/P: 28-year-old male with resolved midsternal chest pain Patient's story is consistent with an anxiety attack. Patient denies any family history or any personal medical history. I will collect one set of cardiac enzymes along with basic labs, EKG and reevaluate Patient refuses chest x-ray at this time. Given absence of cough, normal lung exam and absence of fevers low likelihood for pulmonary etiology of pain. Likely discharge 12/04/18 22:21 EKG is sinus rhythm with rate of 69. Normal intervals present. No ischemic changes noted. Laboratory testing notable for WBC of 11.4, hemoglobin is 17.0, hematocrit 49.9. No discharge from testing is negative. I will discharge patient home to follow-up with his primary doctor as needed. I'll give the patient a prescription for hydroxyzine. *DC/Admit/Observation/Transfer Diagnosis at time of Disposition: Anxiety Chest pain Qualifiers: Chest pain type: unspecified Qualified Code(s): R07.9 - Chest pain, unspecified - Discharge Dispostion Disposition: HOME Condition at time of disposition: Stable Decision to Admit order: No - Prescriptions Prescriptions: hydrOXYzine HCL [Atarax -] 25 mg PO TID #21 tablet - Referrals Referrals: Aung Dejesus MD [Primary Care Provider] - - Patient Instructions Printed Discharge Instructions: DI for Atypical Chest Pain Additional Instructions: Take hydroxyzine 25 mg 3 times a day as needed for anxiety. Make an appointment with her primary doctor for reevaluation of her pain. Initial blood testing and cardiac profile were negative here. Return to emergency department for any new or worsening symptoms. - Post Discharge Activity
[2018-12-04 21:06] LABS: BASO % 0.2 % (0-2.0); EOS % 0.4 % (0-4.5); HEMATOCRIT 49.9 % (35.4-49); LYMPH % 16.3 % (8-40); MCHC 34.2 g/dl (32.0-35.9); MEAN CELL VOLUME 87.8 fl (80-96); MEAN PLT VOLUME 7.9 fl (7.5-11.1); MONO % 10.7 % (3.8-10.2); NEUT % 72.4 % (42.8-82.8); PLATELET COUNT 257 K/MM3 (134-434); RBC 5.68 M/mm3 (4.00-5.60); RDW 13.7 % (11.9-15.9); WHITE BLOOD COUNT 11.4 K/mm3 (4.0-10.0)
[2018-12-04 22:05] LABS: ALBUMIN 4.3 g/dl (3.4-5.0); ALK PHOS 93 U/L (45-117); ANION GAP 7 MMOL/L (8-16); BILIRUBIN,TOTAL 0.4 mg/dL (0.2-1); BLOOD UREA NITROGEN 16 mg/dL (7-18); CHLORIDE 106 mmol/L (98-107); CO2 25 mmol/L (21-32); CREATININE 1.2 mg/dL (0.55-1.3); GLUCOSE,RANDOM 100 mg/dL (74-106); POTASSIUM 4.6 mmol/L (3.5-5.1); SGOT/AST 37 U/L (15-37); SGPT/ALT 55 U/L (13-61); SODIUM 138 mmol/L (136-145); TOT PROT 7.6 g/dl (6.4-8.2)
--- NOTE | 2018-12-05 16:54 | EKG ---
Test Reason : Blood Pressure : / mmHG Vent. Rate : 069 BPM Atrial Rate : 069 BPM P-R Int : 138 ms QRS Dur : 086 ms QT Int : 356 ms P-R-T Axes : 039 057 016 degrees QTc Int : 381 ms NORMAL SINUS RHYTHM WITH SINUS ARRHYTHMIA NORMAL ECG WHEN COMPARED WITH ECG OF 07-JUN-2018 17:46, NO SIGNIFICANT CHANGE WAS FOUND Confirmed by EUGENIO GATICA MD ([id number]) on 12/05/2018 4:54:25 PM Referred By: Confirmed By:EUGENIO GATICA MD
== END 2018-12-04 23:01 | disposition home or self-care (01) ==
LOC: JER 19:19
DX: F41.9 Anxiety disorder, unspecified (principal); R07.9 Chest pain, unspecified
CPT/HCPCS: 36415; 80053; 82550; 82553; 84484; 85025; 93005; 93010; 99282-25

== ENCOUNTER 2019-01-08 09:12 | Emergency (ER) | payer SELFPAY ==
[2019-01-08 09:34] VITALS: BP 142/94; PULSE 89; TEMP 98.1; BMI 27.8
--- NOTE | 2019-01-08 09:45 | PDOC ---
History of Present Illness - General Chief Complaint: Pain Stated Complaint: RIGHT KNEE PAIN Time Seen by Provider: 01/08/19 09:20 - History of Present Illness Initial Comments: 01/08/19 10:15 Chief complaint: Right knee pain History of present illness: Intermittent right knee pain for several months, aggravated while running up stairs several days ago. Pain is located anteriorly , just inferior to the patella. It is worse with extreme flexion Review of systems: No distal numbness tingling pain or weakness. No appreciable swelling, redness, heat, recent URI symptoms, sore throat, cough, chest pain, shortness of breath, abdominal pain, nausea, vomiting, diarrhea. Past medical history: No prior knee problems. Denies current medical or surgical problems, medications. However, he has taken ibuprofen intermittently for the knee pain Social/family history reviewed and noncontributory Physical exam: Alert and oriented well-developed well-nourished no acute distress cheerful and cooperative Afebrile, vital signs normal Skin clear, no rash, adequate turgor and wet mucous membranes Right knee: There is no deformity, effusion, erythema, or heat. There is mild swelling and tenderness over the patellar tendon, which feels somewhat boggy. Lockman is negative. There is no stress tenderness or laxity of the MCL or ACL. Zain sign is negative. There is no joint space tenderness. Distal pulses full. No distal sensory or motor deficits. Impression: Chronic right patellar tendinitis. Plan: X-ray and further orthopedic management depending on results Past History - Past Medical History Allergies/Adverse Reactions: Allergies Allergy/AdvReac Type Severity Reaction Status Date / Time No Known Allergies Allergy Verified 01/08/19 09:14 Home Medications: Ambulatory Orders Diclofenac Sodium 75 mg PO BID #14 tablet. 01/08/19 COPD: No Other medical history: DENIES - Surgical History Abdominal Surgery: No Appendectomy: No Cardiac Surgery: No Cholecystectomy: No Gastric Stapling: No GI Surgery: No Lung Surgery: No Neurologic Surgery: No Orthopedic Surgery: No - Family Disease History Family Disease History: Other: Mother (Trigeminal Neuralgia ) - Immunization History Immunization Up to Date: Yes - Suicide/Smoking/Psychosocial Hx Smoking Status: Yes Smoking History: Never smoked Years of Tobacco Use: 0 (no tobacco use, daily marijuana use .) Have you smoked in the past 12 months: No Number of Cigarettes Smoked Daily: 2 Information on smoking cessation initiated: No Hx Alcohol Use: Yes (SOCIAL) Drug/Substance Use Hx: Yes (MARIJUANA DAILY) Substance Use Type: Marijuana *Physical Exam - Vital Signs Last Vital Signs Temp Pulse Resp BP Pulse Ox 98.1 F 89 16 142/94 98 01/08/19 09:13 01/08/19 09:13 01/08/19 09:13 01/08/19 09:13 01/08/19 09:13 Medical Decision Making - Medical Decision Making 01/08/19 10:18 X-ray negative for fracture. There is a prominent tibial tubercle that might suggest nely-schlatters. Advised rest, ice, anti-inflammatory. Arsh wrap. Follow-up Dr. Butler orthopedist if no improvement one week. Fully ambulatory and in no significant pain or other distress upon discharge. 01/08/19 10:27 *DC/Admit/Observation/Transfer Diagnosis at time of Disposition: Patellar tendinitis of right knee, Nely-Schlatter/osteochondroses - Discharge Dispostion Disposition: HOME Condition at time of disposition: Stable Decision to Admit order: No - Prescriptions Prescriptions: Diclofenac Sodium 75 mg PO BID #14 tablet.dr - Referrals Referrals: Greg Butler MD [Staff Physician] - 1 week - Patient Instructions Printed Discharge Instructions: Patellar Tendinopathy, DI for Nely-Schlatter Disease Additional Instructions: Rest, continue ice and medication as directed. See orthopedist if no improvement one week for further evaluation and treatment. - Post Discharge Activity Forms/Work/School Notes: Back to Work
== END 2019-01-08 10:39 | disposition home or self-care (01) ==
LOC: FER 09:12
DX: M76.51 Patellar tendinitis, right knee (principal); M92.51 Juvenile osteochondrosis of proximal tibia; G50.0 Trigeminal neuralgia
CPT/HCPCS: 73562-TC-RT-FY; 99282-25

== ENCOUNTER 2023-02-09 22:41 | Emergency (ER) | payer OTHER ==
[2023-02-09 23:08] VITALS: BMI 30.5
[2023-02-09 23:09] VITALS: BP 144/102; PULSE 104; RESP 16; TEMP 97.7
[2023-02-09] MEDS ORDERED: ONDANSETRON 4 MG/2 ML VIAL IVPB ONE (23:11)
[2023-02-09] MEDS ORDERED: ONDANSETRON 4 MG/2 ML VIAL ONE (23:13)
[2023-02-09] MEDS ORDERED: SODIUM CHLORIDE 1,000 ML IV SCH (23:15)
== END 2023-02-10 00:43 | disposition home or self-care (01) ==
LOC: FER 22:41
PROC: 3E033GC Introduction of Other Therapeutic Substance into Peripheral Vein, Percutaneous Approach (ICD-10-PCS; principal; 2023-02-09)
DX: R11.2 Nausea with vomiting, unspecified (principal)
CPT/HCPCS: 99284-25

== ENCOUNTER 2023-07-30 20:01 | Emergency (ER) | payer OTHER ==
[2023-07-30] MEDS ORDERED: SODIUM CHLORIDE 1,000 ML IV ONE ×3 (20:10→22:41)
[2023-07-30] MEDS ORDERED: ONDANSETRON 4 MG/2 ML VIAL IVPB ONE (20:10)
[2023-07-30] MEDS ORDERED: diazePAM CARPU-JECT 10 MG/2 ML DISP.SYRIN IVPUSH ONE (20:11)
[2023-07-30 20:13] VITALS: BP 143/96; PULSE 97; RESP 20; TEMP 97.6; BMI 31.1
[2023-07-30] MEDS ORDERED: ONDANSETRON 4 MG/2 ML VIAL ONE (20:27)
[2023-07-30 20:28] LABS: HEMOGLOBIN 18.1 G/dL (11.7-16.9); MCH 28.8 pg (25.7-33.7); MCHC 32.9 g/dl (32.0-35.9); MEAN CELL VOLUME 87.6 fl (80-96); MEAN PLT VOLUME 7.8 fl (7.5-11.1); PLATELET COUNT 313.7 10^3/uL (134-434); RBC 6.28 10^6/uL (4.00-5.60); RDW 14.3 % (11.9-15.9)
[2023-07-30 20:44] LABS: ALBUMIN 5.2 g/dl (3.4-5.0); BILIRUBIN,TOTAL 0.8 mg/dl (0.2-1); CALCIUM 10.4 mg/dl (8.5-10.1); CREATININE 1.2 mg/dl (0.6-1.3); MAGNESIUM 1.2 mg/dL (1.8-2.4); PHOSPHOROUS 3.6 (2.5-4.9); POTASSIUM 4.3 mmol/L (3.5-5.1); TOT PROT 8.1 g/dl (6.4-8.2)
[2023-07-30 21:05] LABS: URIC ACID CRYSTALS FEW /hpf (NONE SEEN)
[2023-07-30] MEDS ORDERED: MAGNESIUM SULF 50% (8.12 MEQ/2 ML-1 GM VIAL) IVPB ONE (21:46)
[2023-07-30] MEDS ORDERED: MAGNESIUM 1GM/D5W - 1 GM/100 ML IVPB IVPB ONE (21:48)
[2023-07-30 21:52] LABS: VENOUS BASE EXCESS -4.9 mmol/L (-2-2); VENOUS O2 SATURATION 87.6 % (70-80); VENOUS PCO2 28.9 mmHg (38-52); VENOUS PH 7.404 (7.310-7.410)
[2023-07-30 22:35] LABS: LACTIC ACID 4.5 mmol/L (0.4-2.0)
== END 2023-07-30 23:24 | disposition left against medical advice (07) ==
LOC: FER 20:01
PROC: 3E033GC Introduction of Other Therapeutic Substance into Peripheral Vein, Percutaneous Approach (ICD-10-PCS; principal; 2023-07-30)
PROC: 3E033GC Introduction of Other Therapeutic Substance into Peripheral Vein, Percutaneous Approach (ICD-10-PCS; 2023-07-30)
PROC: 3E0337Z Introduction of Electrolytic and Water Balance Substance into Peripheral Vein, Percutaneous Approach (ICD-10-PCS; 2023-07-30)
PROC: 3E0337Z Introduction of Electrolytic and Water Balance Substance into Peripheral Vein, Percutaneous Approach (ICD-10-PCS; 2023-07-30)
PROC: 3E0337Z Introduction of Electrolytic and Water Balance Substance into Peripheral Vein, Percutaneous Approach (ICD-10-PCS; 2023-07-30)
DX: R11.10 Vomiting, unspecified (principal); E87.20 Acidosis, unspecified
CPT/HCPCS: 36415; 80053; 81003; 81015; 82803; 83605; 83690; 83735; 84100; 85027; 99284-25

== ENCOUNTER 2023-10-23 18:00 | Emergency (ER) | payer OTHER ==
[2023-10-23 18:09] VITALS: BP 137/90; PULSE 94; RESP 17; TEMP 97.2; BMI 30.5
[2023-10-23] MEDS ORDERED: ONDANSETRON 4 MG/2 ML VIAL IVPUSH ONE (18:37)
[2023-10-23] MEDS ORDERED: ACETAMINOPHEN 1000 MG/100 ML BAG IVPB ONE (18:39)
[2023-10-23] MEDS ORDERED: ACETAMINOPHEN INJECTION 100 ML IVPB ONE (18:49)
[2023-10-23] MEDS ORDERED: ONDANSETRON 4 MG/2 ML VIAL ONE (18:50)
[2023-10-23 18:59] LABS: BASO % 0.3 % (0-2.0); EOS % 0.9 % (0-4.5); HEMATOCRIT 48.6 % (35.4-49); HEMOGLOBIN 15.9 GM/dL (11.7-16.9); LYMPH % 31.3 % (8-40); MCH 28.2 pg (25.7-33.7); MCHC 32.7 g/dl (32.0-35.9); MEAN CELL VOLUME 86.1 fl (80-96); MEAN PLT VOLUME 7.7 fl (7.5-11.1); MONO % 14.2 % (3.8-10.2); NEUT % 53.3 % (42.8-82.8); PLATELET COUNT 276 10^3/uL (134-434); RBC 5.64 M/mm3 (4.00-5.60); RDW 13.3 % (11.9-15.9); WHITE BLOOD COUNT 5.5 K/mm3 (4.0-10.0)
[2023-10-23 19:07] LABS: INR 1.14 (0.83-1.09); PROTHROMBIN TIME (PATIENT) 13.2 SEC (9.7-13.0)
[2023-10-23 19:10] LABS: ACTIVATED PTT 25.5 SECONDS (25.2-36.5)
[2023-10-23 19:32] LABS: POTASSIUM 4.2 mmol/L (3.5-5.1)
[2023-10-23 19:35] LABS: CALCIUM 9.7 mg/dL (8.5-10.1)
[2023-10-23 19:36] LABS: ALBUMIN 4.2 g/dl (3.4-5.0); BLOOD UREA NITROGEN 14.3 mg/dL (7-18)
[2023-10-23 19:41] LABS: BILIRUBIN,TOTAL 1.1 mg/dL (0.2-1); TOT PROT 7.5 g/dl (6.4-8.2)
[2023-10-23] MEDS ORDERED: HYDROmorphone HCl 2 MG/ML VIAL IVPUSH ONE (20:13)
[2023-10-23] MEDS ORDERED: HYDROmorphone HCl 2 MG/ML VIAL ONE (20:32)
[2023-10-23] MEDS ORDERED: KETOROLAC TROMETHAMINE 15 MG/ML VIAL IVPUSH ONE (21:16)
[2023-10-23] MEDS ORDERED: KETOROLAC TROMETHAMINE 15 MG/ML VIAL ONE (21:18)
[2023-10-23] MEDS ORDERED: METHOCARBAMOL 500 MG TABLET PO ONE (21:24)
[2023-10-23] MEDS ORDERED: METHOCARBAMOL 500 MG TABLET ONE (21:25)
== END 2023-10-23 21:40 | disposition home or self-care (01) ==
LOC: JER 18:00
PROC: 3E033NZ Introduction of Analgesics, Hypnotics, Sedatives into Peripheral Vein, Percutaneous Approach (ICD-10-PCS; principal; 2023-10-23)
PROC: 3E0333Z Introduction of Anti-inflammatory into Peripheral Vein, Percutaneous Approach (ICD-10-PCS; 2023-10-23)
PROC: 3E033GC Introduction of Other Therapeutic Substance into Peripheral Vein, Percutaneous Approach (ICD-10-PCS; 2023-10-23)
PROC: 3E033GC Introduction of Other Therapeutic Substance into Peripheral Vein, Percutaneous Approach (ICD-10-PCS; 2023-10-23)
DX: M54.50 Low back pain, unspecified (principal); R51.9 Headache, unspecified; M62.830 Muscle spasm of back; R11.0 Nausea; H53.8 Other visual disturbances; M54.2 Cervicalgia; R42 Dizziness and giddiness; W10.0XXA Fall (on)(from) escalator, initial encounter; Y93.89 Activity, other specified; Y92.243 City hall as the place of occurrence of the external cause
CPT/HCPCS: 36415; 70450-TC; 71260-TC; 72125-TC; 72128-TC; 72131-TC; 74177-TC; 80053; 85025; 85610; 85730; 86850; 86900; 86901; 99285-25; Q9967